=== PATIENT | female | born 1960 | race Caucasian/White ===

== ENCOUNTER 2022-01-09 12:10 | Emergency (ER) | payer BC, SELFPAY ==
[2022-01-09 12:20] VITALS: BP 135/101; PULSE 70; RESP 16; TEMP 36.7; O2SAT 99
--- NOTE | 2022-01-09 13:04 | ED.URI ---
HPI - URI/Sore Throat General Chief Complaint: Upper Respiratory Infection Stated Complaint: Sore throat Time Seen by Provider: 01/09/22 13:04 Source: patient, RN notes reviewed and old records reviewed Mode of arrival: ambulatory Limitations: no limitations History of Present Illness HPI Narrative: 62-year-old female who presents to [facility] care with complaints of hoarseness,cough, and sore throat for the past 3 days. Patient denies any known fevers does have a history of lupus and takes injectable biologicals and Plaquenil daily she has been COVID vaccinated and booster, did have COVID in 2019. Patient reports no known fevers or chills or body aches, reports that cough is at times productive of light green tinged mucous, states cough is bad at night not resting well MD elicited complaint: cough and sore throat Pertinent past history: immunosuppression Onset (ago): day(s) (3) Treatments prior to arrival: cold medicine Related Data Home Medications Medication Instructions Recorded Confirmed belimumab 200 mg/mL subcutaneous mg subcut 01/09/22 auto-injector (Benlysta) hydroxychloroquine 200 mg tablet mg PO 01/09/22 Allergies Allergy/AdvReac Type Severity Reaction Status Date / Time No Known Allergies Allergy Verified 01/09/22 12:12 Review of Systems Review of Systems: CONSTITUTIONAL: Denies fever, chills, or sweats. EYES: Denies visual changes, redness, or discharge. ENT: Positive for rhinorrhea, congestion,no sore throat, or otalgia. CARDIOVASCULAR: Denies chest pain, palpitations, or edema. RESPIRATORY: Positive for cough denies dyspnea. GASTROINTESTINAL: Denies abdominal pain, nausea, vomiting, or diarrhea. GENITOURINARY: Denies dysuria or hematuria. SKIN: Denies rash or itching. MUSCULOSKELETAL: Denies back pain, joint pain, or myalgia. NEUROLOGIC: Denies headache, numbness, or weakness. PSYCHIATRIC: Denies anxiety or depression. All systems reviewed & are unremarkable except as noted in HPI and below PMFSH Past Medical History Medical History (Updated 01/10/22 @ 22:04 by Sadia Gaines NP) Lupus Post-menopausal Social History Social History (Updated 01/10/22 @ 22:05 by Sadia Gaines NP) Smoking status: Current some day smoker Tobacco type: cigarettes Alcohol intake: current Alcohol use details: social Substance use type: does not use Living arrangements: with family Occupation/Education: retired Gender identity (if verbalized by the patient): Female Comments At time of signature, agree with nursing past medical, surgical, social and family history. There is no relevant family history pertinent to the presenting complaint Exam Narrative: GENERAL: Well-appearing, well-nourished, and in no acute distress. HEAD: Normocephalic, atraumatic. EYES: PERRLA and EOMI. ENT: Nares red with clear rhinorrhea no epistaxis. Mucous membranes moist.TM's normal with good light reflex, throat mild redness with no exudates or lesions no tonsil swelling some post nasal drainage. NECK: Supple.no lymphadenopathy CHEST: Clear to auscultation. No respiratory distress.SAO2 99% on room air hoarseness with cough which is productive at times no tachypnea HEART: Regular rate and rhythm. No murmur heard. Normal peripheral pulses. ABDOMEN: Soft, nontender, nondistended, normal active bowel sounds. EXTREMITIES: Normal range of motion. No edema. SKIN: Warm, dry, no rash. NEURO: No focal deficits. Alert and oriented x3. Course Course Level of Care: Express Care Visit Vital Signs Vital signs: Vital Signs Temperature 36.7 C 01/09/22 12:20 Pulse Rate 70 01/09/22 12:20 Respiratory Rate 16 01/09/22 12:20 Blood Pressure 135/101 H 01/09/22 12:20 Pulse Oximetry 99 01/09/22 12:20 Oxygen Delivery Room Air 01/09/22 12:20 Temperature 36.7 C 01/09/22 12:20 Pulse Rate 70 01/09/22 12:20 Respiratory Rate 16 01/09/22 12:20 Blood Pressure 135/101 H 01/09/22 12:20 Pulse Oximetry
== END 2022-01-09 13:35 | disposition home or self-care (01) ==
PROVIDERS: Emergency Provider Registered Nurse
DX: J02.9 Acute pharyngitis, unspecified (principal); R05.9 Cough, unspecified; Z20.822 Contact with and (suspected) exposure to COVID-19; F17.210 Nicotine dependence, cigarettes, uncomplicated; M32.9 Systemic lupus erythematosus, unspecified
CPT/HCPCS: 87081; 87426; 99213; C9803; G0463